=== PATIENT | female | born 2005 | race African-American/Black ===

== ENCOUNTER 2024-08-09 22:41 | Emergency (ER) | payer OTHER ==
[~2024-08-09] VITALS: Ht 157.4 cm; Wt 83.5 kg
[2024-08-10] MEDS ORDERED: MELOXICAM15 MG PO (01:28)
== END 2024-08-10 01:38 | disposition home or self-care (01) ==
LOC: ED 22:41
DX: M54.50 Low back pain, unspecified (principal); W10.8XXA Fall (on) (from) other stairs and steps, initial encounter

== ENCOUNTER 2024-09-18 00:57 | Emergency (ER) | payer OTHER ==
[~2024-09-18] VITALS: Ht 157.4 cm; Wt 92.1 kg
[~2024-09-18 00:57] MED LIST: MELOXICAM15 MG PO
[2024-09-18] MEDS ORDERED: Ketorolac Tromethamine 60 MG/2 ML VIAL IM ONE (03:05)
== END 2024-09-18 03:13 | disposition home or self-care (01) ==
LOC: ED 00:57
DX: B34.9 Viral infection, unspecified (principal); Z20.822 Contact with and (suspected) exposure to COVID-19

== ENCOUNTER 2024-12-09 20:16 | Emergency (ER) | payer OTHER ==
[~2024-12-09] VITALS: Ht 157.4 cm; Wt 86.2 kg
[2024-12-09] MEDS ORDERED: FALMINA-28 TAB1 EACH PO (20:44)
[2024-12-09] MEDS ORDERED: DEXTROAMPH SACC20 M1 PO (20:45)
[2024-12-09] MEDS ORDERED: AMPHETAMINE SA7.5 MG PO (20:45)
[2024-12-09] MEDS ORDERED: ESCITALOPRAM OX20 MG PO (20:45)
[2024-12-09] MEDS ORDERED: CYCLOBENZAPRINE10 MG PO (20:56)
[2024-12-09] MEDS ORDERED: MUPIROCIN 15 GM TUBE T ONE (21:00)
[2024-12-09] MEDS ORDERED: Cyclobenzaprine Hydrochlorid 10 MG TAB PO ONE (21:00)
== END 2024-12-09 21:19 | disposition home or self-care (01) ==
LOC: ED 20:16
DX: M54.50 Low back pain, unspecified (principal); K13.0 Diseases of lips; Z79.899 Other long term (current) drug therapy